=== PATIENT | male | born 1975 | race Two or more races ===

== ENCOUNTER 2016-11-27 18:34 | Emergency (ER) | payer OTHER ==
[2016-11-27 19:59] LABS: ABSOLUTE NEUTROPHIL COUNT 4.3 K/mm3 (1.8-7.7); BASO % 0.3 % (0.2-1.0); EOS # 0.1 (0.0-0.5); EOS % 1.9 % (0.9-2.9); HEMATOCRIT 43.6 % (32.0-52.0); HEMOGLOBIN 14.5 gm/l (14.0-18.0); IMM NEUT% 0.2 % (0-1); LYMPH # 1.5 (1.0-4.8); LYMPH % 24.2 % (15-45); MEAN CELL VOLUME 84.2 fl (80.0-94.0); MEAN CORPUSCULAR HGB CONC 33.3 g/dl (33.0-37.0); MEAN PLATELET VOLUME 10.3 fl (7.4-10.4); MONO # 0.4 (0.0-0.8); MONO % 5.7 % (4-12); NEUT % 67.7 % (43-75); PLATELET COUNT 192 K/mm3 (130-400); RED CELL DISTRIBUTION WIDTH 12.4 % (11.5-14.5)
[2016-11-27 20:24] LABS: TROPONIN I < 0.01 ng/ml (0.0-0.06)
[2016-11-27 20:28] LABS: CKMB ISOENZYME 2.7 ng/ml (0.6-6.3)
[2016-11-27 20:46] LABS: ALB/GLOB RATIO 1.4 (>1.0); ALBUMIN 4.4 gm/dL (3.5-5.7); CALCIUM 9.5 mg/dL (8.6-10.3)
--- NOTE | 2016-11-28 09:16 | RAD ---
Exam: Two-view chest COMPARISON: 12/26/2015 INDICATION: Chest pain. FINDINGS: PA and lateral views of the chest were obtained. Cardiac silhouette is within normal limits and stable. Lungs are normally inflated. There is no focal airspace disease or pleural effusion. Bones of the chest wall within normal limits. IMPRESSION: Negative two-view chest.
== END 2016-11-27 21:07 | disposition home or self-care (01) ==
LOC: ED 18:34
DX: R07.9 Chest pain, unspecified (principal); R06.02 Shortness of breath

== ENCOUNTER 2016-11-30 21:31 | Emergency (ER) | payer OTHER ==
[2016-11-30] MEDS ORDERED: KETOROLAC TROMETHAMINE 60 MG/2 ML VIAL ONE (22:30)
[2016-11-30] MEDS ORDERED: METOCLOPRAMIDE HCL 5 MG/ML 2ML VIAL ONE (22:30)
== END 2016-11-30 22:55 | disposition home or self-care (01) ==
LOC: ED 21:31
DX: J11.1 Influenza due to unidentified influenza virus with other respiratory manifestations (principal)
CPT/HCPCS: 99282; 96372 ×2; 99283; J2765; J1885